=== PATIENT | male | born 1990 ===

== ENCOUNTER 2017-12-26 02:43 | Emergency (ER) | payer BC ==
[2017-12-26 03:59] VITALS: BP 102/61; PULSE 86; RESP 18; TEMP 98; O2SAT 98
--- NOTE | 2017-12-26 04:10 | ED PDOC ---
HPI: General Adult Time Seen by Provider: 12/26/17 04:09 Chief Complaint (Nursing): Abdominal Pain Chief Complaint (Provider): abd pain, vomiting History Per: Patient Additional Complaint(s): 27-year-old male presents to emergency department with vomiting that started at 5 PM yesterday. He has mild abdominal discomfort and had 2 episodes of watery, non-bloody diarrhea. Patient has subjective fever and chills. He has been unable to keep down any liquids or solids since vomiting began. Patient denies consumption of any food that could've cause stomach upset. PMD: none Past Medical History Reviewed: Historical Data, Nursing Documentation, Vital Signs Vital Signs: Last Vital Signs Temp 98.0 F 12/26/17 03:56 Pulse 86 12/26/17 03:56 Resp 18 12/26/17 03:56 BP 102/61 12/26/17 03:56 Pulse Ox 98 12/26/17 05:47 - Medical History PMH: No Chronic Diseases - Surgical History Surgical History: No Surg Hx - Family History Family History: States: No Known Family Hx - Living Arrangements Living Arrangements: With Family - Social History Current smoker - smoking cessation education provided: No Alcohol: Social Drugs: Cannabis - Home Medications Home Medications: Ambulatory Orders Medication Instructions Recorded Ondansetron [Zofran Odt] 4 mg PO ASDIR PRN #20 odt 12/26/17 - Allergies Allergies/Adverse Reactions: Allergies Allergy/AdvReac Type Severity Reaction Status Date / Time No Known Allergies Allergy Verified 12/26/17 03:55 Review of Systems ROS Statement: Except As Marked, All Systems Reviewed And Found Negative Constitutional: Positive for: Fever (subjective). Negative for: Chills Cardiovascular: Negative for: Chest Pain Respiratory: Negative for: Cough Gastrointestinal: Positive for: Nausea, Vomiting, Abdominal Pain. Negative for : Diarrhea Physical Exam - Reviewed Nursing Documentation Reviewed: Yes Vital Signs Reviewed: Yes - Physical Exam Appears: Positive for: Well, Non-toxic, No Acute Distress Skin: Negative for: Rash Eye Exam: Positive for: Normal appearance Cardiovascular/Chest: Positive for: Regular Rate, Rhythm Respiratory: Positive for: Normal Breath Sounds Gastrointestinal/Abdominal: Positive for: Soft. Negative for: Tenderness, Distended, Guarding, Rebound Neurologic/Psych: Positive for: Alert, Oriented - Laboratory Results Result Diagrams: 12/26/17 04:35 12/26/17 04:35 - ECG O2 Sat by Pulse Oximetry: 98 Pulse Ox Interpretation: Normal Medical Decision Making Medical Decision Makin-year-old male with vomiting and diarrhea, abdominal exam is benign Plan: CBC CMP Lipase IVF Flu swab IV zofran Patient feels better after meds given. He is requesting tylenol for headache. Patient tolerated tylenol and water with no further emesis. Will d/c with rx zofran. Dietary instructions provided. Advised fluids, rest and follow up with PMD in 2-3 days. Disposition - Clinical Impression Clinical Impression: Gastroenteritis - Patient ED Disposition Is Patient to be Admitted: No Counseled Patient/Family Regarding: Studies Performed, Diagnosis, Need For Followup, Rx Given - Disposition Referrals: [facility] [Outside] Disposition: Routine/Home Disposition Time: 06:08 Condition: IMPROVED Additional Instructions: Take rx meds as directed as needed for nausea and vomiting. Drink plenty of fluids and follow bland diet. Follow up in 2-3 days with primary care doctor. Prescriptions: Ondansetron [Zofran Odt] 4 mg PO ASDIR PRN #20 odt PRN Reason: Nausea/Vomiting Instructions: Gastroenteritis (ED) Forms: [employer] ([place]ian), [facility] ED School/Work Excuse Results - Lab Results Lab Results: 12/26/17 12/26/17 12/26/17 04:35 04:35 04:35 WBC 6.4 RBC 5.38 Hgb 14.9 Hct 46.6 MCV 86.6 MCH 27.7 MCHC 32.0 L RDW 13.0 Plt Count 142 MPV 8.7 Neut % (Auto) 87.1 H Lymph % (Auto) 3.4 L Calhoun % (Auto) 9.1 Eos % (Auto) 0.2 Baso % (Auto) 0.2 Neut # 5.6 Lymph # 0.2 L Calhoun # 0.6 Eos # 0.0 Baso # 0.0 Neutrophils % (Manual) Pending Lymphocytes % (Manual) Pending Monocytes % (Manual) Pending Platelet Estimate Pending Sodium 140 Potassium 4.0 Chloride 100 Carbon Dioxide 26 Anion Gap 18 BUN 11 Creatinine 0.9 Est GFR ( Amer) > 60 Est GFR (Non-Af Amer) > 60 Random Glucose 114 H Calcium 9.9 Total Bilirubin 1.1 AST 34 ALT 41 Alkaline Phosphatase 61 Total Protein 8.0 Albumin 4.9 Globulin 3.1 Albumin/Globulin Ratio 1.6 Lipase 31 Influenza Typ A,B (EIA) Negative for flu a/b
[2017-12-26] MEDS ORDERED: Sodium Chloride 0.9% 1,000 ML IV STA (04:16)
[2017-12-26 04:53] LABS: ALB/GLOB RATIO 1.6 (1.0-2.1); ALBUMIN 4.9 g/dL (3.5-5.0); ALT/SGPT 41 U/L (21-72); AST/SGOT 34 U/L (17-59); BLOOD UREA NITROGEN 11 mg/dl (9-20); CALCIUM 9.9 mg/dL (8.4-10.2); GFR AFRICAN-AMERICAN > 60; GFR NON-AFRICAN AMERICAN > 60; LIPASE 31 U/L (23-300)
[2017-12-26 05:40] LABS: BASO % 0.2 % (0.0-2.0); EOS % 0.2 % (0.0-4.0); HEMOGLOBIN 14.9 g/dL (12.0-18.0); LYMPH # 0.2 K/uL (1.0-4.3); LYMPH % 3.4 % (20.0-40.0); MEAN CELL VOLUME 86.6 fl (80.0-94.0); MEAN CORPUSCULAR HEMOGLOBIN 27.7 pg (27.0-31.0); MEAN PLATELET VOLUME 8.7 fl (7.2-11.7); MONO # 0.6 K/uL (0.0-0.8); MONO % 9.1 % (0.0-10.0); NEUT # 5.6 K/uL (1.8-7.0); NEUT % 87.1 % (50.0-75.0); PLATELET COUNT 142 K/uL (130-400); RBC 5.38 Mil/uL (4.40-5.90); WHITE BLOOD COUNT 6.4 K/uL (4.8-10.8)
[2017-12-26 10:30] LABS: LYMPHOCYTE 5 % (20-50); MONOCYTE 7 % (0-10); NEUTROPHIL 88 % (42-75); PLATELET ESTIMATE SLIGHTLY DECREASED (NORMAL); TOTAL CELLS COUNTED 100
[2017-12-26 10:31] LABS: ANISOCYTOSIS SLIGHT; HYPOCHROMIC SLIGHT; LARGE PLATELETS PRESENT; TEARDROP CELLS SLIGHT
== END 2017-12-26 06:23 | disposition home or self-care (01) ==
LOC: H.ER 02:43
DX: K52.9 Noninfective gastroenteritis and colitis, unspecified (principal)
CPT/HCPCS: 80053; 83690; 85025; 87804; 96374; 99282; J2405; J7040